=== PATIENT | female | born 1985 | race Caucasian/White ===

== ENCOUNTER 2016-12-17 20:41 | Emergency (ER) | payer MEDICAID ==
[~2016-12-17] VITALS: Ht 160 cm; Wt 114.8 kg
[~2016-12-17 20:41] MED LIST: ARIP30TA PO; GABA-531 PO
[2016-12-17 20:52] VITALS: BP_SYST 139
[2016-12-17] MEDS ORDERED: GABA800T PO (21:24)
[2016-12-17] MEDS ORDERED: LAMO200T2 PO (21:25)
[2016-12-17] MEDS ORDERED: QUET200T PO (21:25)
[2016-12-17] MEDS ORDERED: ARIP20TA5 PO (21:26)
[2016-12-17] MEDS ORDERED: LevALBUTEROL HCL 1.25 MG/0.5 ML *CONC.* VIAL.NEB (XOPENEX CONC.) INH ONE (23:15)
[2016-12-17 23:35] LABS: BASOPHILS % (AUTO) 0.4 % (0.0-2.0); EOSINOPHILS # (AUTO) 0.3 K/uL (0.0-0.4); EOSINOPHILS % (AUTO) 3.3 % (0.0-4.0); HEMATOCRIT 37.5 % (36-48); HEMOGLOBIN 12.8 g/dL (12.0-16.0); LYMPHOCYTES # (AUTO) 2.7 K/uL (1.0-5.5); LYMPHOCYTES % (AUTO) 28.6 % (20.5-51.5); MEAN CORPUSCULAR HEMOGLOBIN 31 pg (27-31); MEAN CORPUSCULAR HGB CONC 34 % (32-36); MEAN CORPUSCULAR VOLUME 90 fL (79.0-98.0); MONOCYTES # (AUTO) 0.5 K/uL (0.0-1.0); MONOCYTES % (AUTO) 5.4 % (1.7-9.3); NEUTROPHILS # (AUTO) 5.9 K/uL (1.8-7.7); NEUTROPHILS % (AUTO) 62.3 % (40.0-70.0); PLATELET COUNT (AUTO) 275 K/uL (130-430); RED BLOOD CELL COUNT(AUTO) 4.16 MIL/uL (4.2-6.2); RED CELL DISTRIBUTION WIDTH 12.1 % (9.0-15.0); WHITE BLOOD COUNT (AUTO) 9.4 K/uL (4.8-10.8)
[2016-12-17 23:44] LABS: CALCIUM 8.5 mg/dL (8.4-11.0); CHLORIDE 109 mmol/L (98-107); CREATININE 1.03 mg/dL (0.55-1.30); GLUCOSE 115 mg/dL (70-99); POTASSIUM 3.8 mmol/L (3.5-5.1); SODIUM SERUM 139 mmol/L (136-145); UREA NITROGEN, BLOOD 8 mg/dL (8-21)
[2016-12-17 23:46] LABS: INR 0.9 (0.8-1.2)
[2016-12-17 23:50] LABS: ANION GAP < 3 (5-15); GFR AFRICAN AMERICAN 80 mL/min (>90)
[2016-12-18 00:41] VITALS: BP_SYST 139
== END 2016-12-18 00:41 | disposition home or self-care (01) ==
LOC: SED 20:41
DX: R60.0 Localized edema (principal); J45.909 Unspecified asthma, uncomplicated; F31.9 Bipolar disorder, unspecified
CPT/HCPCS: 36415; 80048; 85025; 85379; 85610-TC; 85730-TC; 94640; 99284